=== PATIENT | male | born 1955 | race Caucasian/White ===

== ENCOUNTER 2018-02-10 20:50 | Inpatient (IN) ==
--- NOTE | 2018-02-10 21:05 | Emergency Department Note ---
Disposition Clinical Impression: Appendicitis Qualifiers: Appendicitis type: acute appendicitis Acute appendicitis type: unspecified acute appendicitis type Qualified Code(s): K35.80 - Unspecified acute appendicitis Disposition: Admitted As Inpatient Condition: Fair Forms: Work/School Release, ED Satisfaction Letter General Adult HPI - General Chief complaint: ED Abdominal Pain Stated complaint: abdominal pain Time Seen by Provider: 02/10/18 21:00 Source: patient, family, EMS Mode of arrival: EMS Limitations: no limitations Nursing Notes Reviewed: Yes Vital Signs Reviewed: Yes - History of Present Illness HPI Narrative: Symptoms started on Wednesday and then progressive in nature. Patient works the [employer]. Patient was seen at the [facility] for evaluation of right lower quadrant abdominal pain. Blood work and CT scan as reported below. Consistent with appendicitis. Patient has developed fever of 101. Received rectal Tylenol at the ID. Patient has associated right lower quadrant tenderness. 5 out of 10. worse with movement and palpation. better with laying still. No radiation. Associated decreased appetite. Constipation. Nothing by mouth since 10 AM Medications Amlodipine, fish oil, garlic oil, mag citrate, meclizine, pantoprazole, tamsulosin Past medical history Diabetes, vertigo, acid reflux, sleep apnea, carpal tunnel, hypertension, personality disorder Laboratory investigation White blood cell count 21. Hemoglobin 14. Platelets 371. Neutrophils 79.6. Absolute neutrophil count 16.7. Sodium 138. Potassium 3.7. Chloride 101. CO2 29. Glucose 157. B1 14. Creatinine 1.10. GFR greater than 60 Imaging Abdomen 2 view shows mildly prominent bowel loops with air fluid levels without definitive obstruction Small round densities in the left hemipelvis most consistent with phleboliths. Mild patchy low-attenuation relation involving the inferior pubic rami suggestive of lytic lesions versus heterogeneous osteopenia CT abdomen and pelvis: Impression as follows: Acute appendicitis secondary to obstructing appendicolith. Given surrounding free fluid, microperforation is difficult to exclude. No evidence of abscess formation. - Related Data Allergies Allergy/AdvReac Type Severity Reaction Status Date / Time omeprazole Allergy Nausea Verified 02/10/18 21:05 Review of Systems: CONSTITUTIONAL: Fever HEENT: Eyes: No visual changes. Ears, Nose, Throat: No hearing loss, difficulty talking or unable to swallow. SKIN: No rash or itching. CARDIOVASCULAR: No chest pain, chest pressure or chest discomfort. No palpitations or edema. RESPIRATORY: No shortness of breath, cough or sputum. GASTROINTESTINAL: Abdominal pain and constipation with food aversion. GENITOURINARY: No burning on urination or hematuria. NEUROLOGICAL: No headache, dizziness, syncope, paralysis, ataxia, numbness or tingling in the extremities. No change in bowel or bladder control. MUSCULOSKELETAL: No muscle pain, back pain, joint pain or stiffness. Physical Exam General appearance: NAD, conversant Eyes: anicteric sclerae, moist conjunctivae; PERRL HENT: Atraumatic; oropharynx clear with moist mucous membranes and no mucosal ulcerations Neck: Normal inspection; Trachea midline; FROM, supple Lungs: CTA, with normal respiratory effort and no intercostal retractions CV: RRR, no MRGs Abdomen: Significant tenderness the right lower quadrant with mild rebound and guarding. Extremities: No peripheral edema or extremity lymphadenopathy Skin: Normal temperature; no rash, ulcers or lesions Psych: Flat affect Neuro: alert and oriented to person, place and time Course - Consultations Consultation #1: Discussed Dr. Hill. Patient has appendicitis with appendicolith. No evidence of abscess or perforation. Patient is placed on antibiotics and admitted to his service. Requests Horacio.
[2018-02-10] MEDS ORDERED: Piperacillin/Tazobactam 3.375 GM in 0.9 % Sodium Chloride Mini Bag 100 ML IVPB ONE (21:20)
[2018-02-10] MEDS ORDERED: Ondansetron 4 MG/2 ML VIAL IVP PRN ×2 (21:21→22:11)
[2018-02-10] MEDS ORDERED: *HR* Morphine 2 MG/ML SYRINGE IVP PRN (21:21)
--- NOTE | 2018-02-10 21:28 | Emergency Department Note ---
Disposition Clinical Impression: Appendicitis Qualifiers: Appendicitis type: acute appendicitis Acute appendicitis type: unspecified acute appendicitis type Qualified Code(s): K35.80 - Unspecified acute appendicitis Disposition: Admitted As Inpatient Condition: Fair Forms: ED Satisfaction Letter, Work/School Release General Adult HPI - General Chief complaint: ED Abdominal Pain Stated complaint: abdominal pain Time Seen by Provider: 02/10/18 21:00 Source: patient, family, EMS Mode of arrival: EMS Limitations: no limitations Nursing Notes Reviewed: Yes Vital Signs Reviewed: Yes - History of Present Illness Pain Scale: 4 - Related Data Home Medications Medication Instructions Recorded Confirmed Pantoprazole Sodium [Protonix] 40 mg PO DAILY 02/10/18 02/10/18 Tamsulosin [Flomax] 0.4 mg PO DAILY 02/10/18 02/10/18 amLODIPine [Norvasc] 5 mg PO DAILY 02/10/18 02/10/18 Allergies Allergy/AdvReac Type Severity Reaction Status Date / Time omeprazole Allergy Nausea Verified 02/10/18 21:05 Past Medical History - Past Medical History Medical history: Reports: other Psychiatric history: Reports: no psych history - Social History Smoking Status: Never smoker Smokeless Tobacco Status: No Alcohol use: Reports: none Physical Exam - General Limitations: no limitations General appearance: alert Course Vital Signs Temperature 100.8 F H 02/10/18 20:53 Pulse Rate 92 02/10/18 20:53 Respiratory Rate 19 02/10/18 20:53 Blood Pressure 139/81 02/10/18 20:53 O2 Sat by Pulse Oximetry 95 02/10/18 20:53 Temperature 100.8 F H 02/10/18 20:53 Pulse Rate 92 02/10/18 20:53 Respiratory Rate 19 02/10/18 20:53 Blood Pressure 139/81 02/10/18 20:53 O2 Sat by Pulse Oximetry 95 02/10/18 20:53 Oxygen Delivery Oxygen Delivery Room Air Attestation Statement - Attestation Attestation: I, Peter Fortune MD, personally evaluated this patient and discussed their management with the resident physician. I reviewed the resident's note and agree with the documented findings, medical decision making, and plan of care. 62-year-old male transferred here from the local [facility] urgent care for acute appendicitis. Patient presented there with a 2 day history of no bowel movement and right sided abdominal pain. Workup at the [facility] revealed a WBC of 21, 000. CT of the abdomen and pelvis consistent with acute appendicitis. On examination patient is a well-developed well-nourished male in no acute distress. He is alert and oriented 3. There is no cyanosis or diaphoresis. Breath sounds are clear and equal bilaterally. Heart regular rate and rhythm. Abdomen is soft with present bowel sounds. There is marked right lower quadrant tenderness with guarding. Labs, x-ray, and CT results from the [facility] were reviewed. Dr. Yu discussed the case with the surgeon search consultant, Dr. Hill, and he accepted admission of the patient to his service.
[2018-02-10 21:30] LABS: INR 1.2; Prothrombin Time 13.1 Seconds (9.4-12.1)
[2018-02-10] MEDS ORDERED: 0.9 % Sodium Chloride 1,000 ML IVC SCH (21:30)
[2018-02-10] MEDS ORDERED: D5% in Water 1,000 ML IVC PRN (22:11)
[2018-02-10] MEDS ORDERED: *HR* Dextrose 50 % in Water (Syg) 50 ML SYRINGE IVP PRN (22:11)
[2018-02-10] MEDS ORDERED: Dextrose Gel 15 GM/37.5 ML TUBE PO PRN ×2 (22:11)
[2018-02-10] MEDS ORDERED: MORPHINE SUL Oral CONC 10 MG/0.5 ML ORAL.SYG SL PRN (22:11)
[2018-02-11] MEDS: Insulin LISPRO 300 UNITS/3 ML VIAL SQ SCH ×4 (00:37→19:17)
[2018-02-11] MEDS: Piperacillin/Tazobactam 3.375 GM in 0.9 % Sodium Chloride Mini Bag 100 ML IVPB SCH ×3 (05:36→21:14)
[2018-02-11] MEDS: 0.9 % Sodium Chloride 1,000 ML IVC SCH ×4 (05:36→21:12)
[2018-02-11 05:53] LABS: Basophils # 0.1 K/mcL (0.0-0.2); Basophils % 0.4 %; Eosinophils # 0.2 K/mcL (0.0-0.6); Hemoglobin 12.4 g/dL (12.9-16.9); Immature Granulocytes % 0.6 % (0-4); Lymphocytes % 11.5 %; Mean Corpuscular HGB Conc 33.5 g/dL (31.6-35.5); Mean Corpuscular Hemoglobin 30.7 pg (28.0-33.3); Mean Corpuscular Volume 91.6 fL (83.0-100.0); Mean Platelet Volume 9.8 fL (9.4-12.4); Monocytes # 1.6 K/mcL (0.0-1.3); Monocytes % 8.8 %; Neutrophils # 13.8 K/mcL (1.6-8.9); Platelet Count 317 K/mcL (140-400); Red Blood Count 4.04 M/mcL (4.19-5.50); Red Cell Distribution Width 12.5 % (11.5-14.5); Segmented Neutrophils % 77.7 %
--- NOTE | 2018-02-11 07:40 | General Surg History&Physical ---
Date of Encounter: 02/11/18 Time of Encounter: 07:38 Assessment and Plan (1) Acute appendicitis Current Visit: Yes Status: Acute The assessment and plan as outlined above was discussed with the patient and/or family members who expressed understanding and agreement. All questions were answered. I explained to the patient that I personally reviewed the images and report and I think it will be appropriate to proceed with a laparoscopic appendectomy. Risks and benefits have been discussed with the patient and we will proceed with this is afternoon. We will continue with IV antibiotics at this time. Qualifiers: Acute appendicitis type: with localized peritonitis Qualified Code(s): K35.3 - Acute appendicitis with localized peritonitis History of Present Illness Chief complaint: Right sided abdominal pain HPI: Mr. Lynn is a 62 year old male with with a past medical history significant for hypertension states that about one week ago he started to have right-sided abdominal pain. He points to the right flank area and states that he was also having some bloating sensation of discomfort. He was having problems with no bowel movements as well. The pain progressively worsened and because of continued discomfort he presented to the [facility] for further evaluation. He denies any nausea or vomiting but does admit to intermittent symptoms of diarrhea and constipation with a bowel movement on average twice per day without rectal bleeding. He had a CT scan performed the [facility] which showed evidence of acute appendicitis and he was subsequently transferred to [place] for further evaluation. He states today that his pain is somewhat better. Past Med Surg Social Fam HX - Past Medical History Medical history: diabetes, GERD, hypertension, other Psychiatric history: no psych history - Past Surgical History Surgical History: other (left neck I&D, INSPIRE placement) - Social History Smoking Status: Never smoker Smokeless Tobacco Status: No Alcohol use: none Drug use: none - Family History Brother Living Status: Still Living Hx Family Cardiac Disorders: Yes (mi and stroke) Hx Family Endocrine Disorder: Yes Medications and Allergies Pantoprazole Sodium [Protonix] 40 mg PO DAILY 02/10/18 [History] Tamsulosin [Flomax] 0.4 mg PO DAILY 02/10/18 [History] amLODIPine [Norvasc] 5 mg PO DAILY 02/10/18 [History] 3 Allergy/AdvReac Type Severity Reaction Status Date / Time omeprazole Allergy Nausea Verified 02/10/18 21:26 Review of Systems All systems PM: reviewed and no additional remarkable complaints except as stated All systems PM: The remainder of the systems were reviewed and are negative General Surgery Exam Initial Vital Signs Temp Pulse Resp BP Pulse Ox 100.8 F H 92 19 139/81 95 02/10/18 20:53 02/10/18 20:53 02/10/18 20:53 02/10/18 20:53 02/10/18 20:53 - General physical appearance well nourished, no distress - Respiratory normal expansion, normal respiratory effort - Cardiovascular Cardiovascular exam: Present: RRR, no murmurs/rubs/gallops - Abdomen Abdomen general surgery: Present: bowel sounds present, soft, tender (Noted right sided pain on palpation.) - Neurologic Present: CN 2-12 grossly intact - Musculoskeletal Present: other (No clubbing, cyanosis, or edema) Results - Labs 02/11/18 05:28 Abnormal lab results WBC 17.8 K/mcL (4.3-11.1) H 02/11/18 05:28 RBC 4.04 M/mcL (4.19-5.50) L 02/11/18 05:28 Hgb 12.4 g/dL (12.9-16.9) L 02/11/18 05:28 Hct 37.0 % (37.5-50.1) L 02/11/18 05:28 Neutrophils # 13.8 K/mcL (1.6-8.9) H 02/11/18 05:28 Monocytes # 1.6 K/mcL (0.0-1.3) H 02/11/18 05:28 PT 13.1 Seconds (9.4-12.1) H 02/10/18 21:16 All other labs normal. - Imaging CT scan - abdomen: report reviewed, image reviewed (I personally reviewed the CT scan images and report. There is evidence of inflammation of the appendix and surrounding mesentery consistent with acute appendicitis)
[2018-02-11] MEDS ORDERED: *HR* Heparin 5,000 UNIT/ML VIAL SQ SCH (09:00)
[2018-02-11] MEDS ORDERED: Ketorolac 15 MG/ML VIAL IVP ONE (13:04)
[2018-02-11] MEDS ORDERED: Pantoprazole 40 MG VIAL IVP SCH (13:15)
[2018-02-11] MEDS ORDERED: Lidocaine -MPF 4% 5 ML AMPUL ONE (15:01)
[2018-02-11] MEDS ORDERED: Lidocaine -MPF 2% 2 ML VIAL ONE (15:02)
[2018-02-11] MEDS ORDERED: Ondansetron 4 MG/2 ML VIAL ONE (15:02)
[2018-02-11] MEDS ORDERED: Dexamethasone 4 MG/ML VIAL ONE (15:02)
[2018-02-11] MEDS ORDERED: *HR* Rocuronium Bromide 50 MG/5 ML VIAL ONE (15:03)
[2018-02-11] MEDS ORDERED: *HR* Midazolam HCl 2 MG/2 ML VIAL ONE ×2 (15:03→15:05)
[2018-02-11] MEDS ORDERED: Famotidine 20 MG/2 ML VIAL IVP ONE ×2 (15:03→17:43)
[2018-02-11] MEDS ORDERED: Acetaminophen IV 1,000 MG/100 ML INFUS..BTL IVPB ONE (15:03)
[2018-02-11] MEDS ORDERED: *HR* Propofol 200 MG/20 ML VIAL IVP ONE (15:04)
[2018-02-11] MEDS ORDERED: *HR* FentaNYL (PF) 100 MCG/2 ML VIAL ONE ×2 (15:04→16:23)
[2018-02-11] MEDS ORDERED: Acetaminophen IV 1,000 MG/100 ML INFUS..BTL ONE (15:32)
[2018-02-11] MEDS ORDERED: Famotidine 20 MG/2 ML VIAL ONE (15:32)
--- NOTE | 2018-02-11 15:38 | Anesthesia Evaluation PreOp ---
Date of Encounter: 02/11/18 Time of Encounter: 15:35 - Past History Planned Operation: Lap Appendectomy Cardiac History: HTN, Hyperlipidemia Pulmonary History: Denies Any Significant HX RN CARDIAC CATH History: Denies Any Significant HX Other Medical History: Diabetes Type II, GERD Anesthesia History: No Prior Anesthetic Complications Alcohol Use: none Drug use: none Medications and Allergies Pantoprazole Sodium [Protonix] 40 mg PO DAILY 02/10/18 [History] Tamsulosin [Flomax] 0.4 mg PO DAILY 02/10/18 [History] amLODIPine [Norvasc] 5 mg PO DAILY 02/10/18 [History] 3 Allergy/AdvReac Type Severity Reaction Status Date / Time omeprazole Allergy Nausea Verified 02/10/18 21:26 - Meds/Allergy Pre-op Review Medications Reviewed: Yes Allergies Reviewed: Yes Beta Blockers on Current Med List: No Anesthesia Results - Labs 02/11/18 05:28 Laboratory Tests 02/11/18 02/11/18 05:28 05:31 Hgb 12.4 L Hct 37.0 L Plt Count 317 POC Glucose 141 H Anesthesia Exam O2 Sat Height 1.78 m Height 1.78 m Weight 83.915 kg Weight 83.915 kg O2 Sat by Pulse Oximetry 93 O2 Sat by Pulse Oximetry 93 O2 Sat by Pulse Oximetry 93 O2 Sat by Pulse Oximetry 94 O2 Sat by Pulse Oximetry 95 O2 Sat by Pulse Oximetry 95 Vital Signs Temp Pulse Resp BP Pulse Ox 100.8 F H 92 19 139/81 95 02/10/18 20:53 02/10/18 20:53 02/10/18 20:53 02/10/18 20:53 02/10/18 20:53 Height: 5'10 Weight: 185 lbs NPO (# of Hours): MN Pain Scale: 0 - HEENT Pupil (Motor): Pupils equal, EOMI Mallampati: III Teeth: Normal Oral Opening: Less than or equal to 3 - RN CARDIAC CATH LOC: Oriented RN CARDIAC CATH Motor: Normal RUE, Normal LUE, Normal RLE, Normal LLE, Normal Face RN CARDIAC CATH Sensory: Normal: RUE, LUE, RLE, LLE, Face - Cardiac Rhythm: Regular Murmur: None JVD: No Carotid Bruit: No - Pulmonary Breath Sounds: bilateral Clear Respiratory Effort: Symmetrical Anesthesia Assess/Plan ASA Score: 3 (HTN DM Gerd) Modified Chappell Scale for Level of Consciousness: Cooperative, oriented, and tranquil Anesthetic Plan: General, Regional Monitoring Plan: Standard Monitors Recovery Plan: PACU (Discussed GA and possible TAP Block, agrees to proceed)
[2018-02-11] MEDS ORDERED: *HR* PHENYLEPHRINE 1,000 MCG/10 ML SYRINGE IVP ONE (16:08)
[2018-02-11] MEDS ORDERED: *HR* Promethazine 25 MG/ML VIAL IVP PRN (16:20)
[2018-02-11] MEDS ORDERED: *HR* OxyCODONE Immed Rel 5 MG TABLET PO PRN (16:20)
[2018-02-11] MEDS ORDERED: MORPHINE SUL Oral CONC 10 MG/0.5 ML ORAL.SYG SL PRN ×2 (16:20→17:43)
[2018-02-11] MEDS ORDERED: Ketorolac 30 MG/ML VIAL ONE (16:25)
[2018-02-11] MEDS ORDERED: Neostigmine Methylsulfate 3 MG/3 ML SYRINGE ONE (16:29)
--- NOTE | 2018-02-11 16:47 | Operative Note ---
Date of procedure: 02/11/18 Pre-op diagnosis: Acute appendicitis Post-op diagnosis: same Procedure: Laparoscopic appendectomy Anesthesia: GILMARA Surgeon: Feliciano Hill Was there an assistant professor of anthropology present: No Software Publisher Other: HARSH Clayton Estimated blood loss (cc): 6 Specimen: appendix Condition: stable Disposition: PACU Procedure in Detail: Date of surgery: 02/11/18 After properly identifying the patient, the patient was brought to the operating room and placed in the supine position. After proper IV sedation was achieved followed by general endotracheal intubation, the patient's abdomen was prepped and draped in a normal sterile fashion. A timeout was performed noting the patient's name and type of procedure to be performed. An 11 blade scalpel was used to make a subumbilical incision down to level of the rectus fascia. Once the rectus fascia was incised and the abdomen was entered a 12 mm port was placed to the incision and the abdomen was insufflated with carbon dioxide. A laparoscopic camera was placed through the port which showed no injury to the intra-abdominal organs upon entry. A suprapubic 5 mm port and a left lower quadrant 5 mm port were then placed under direct camera visualization. The patient was placed in the left side down position and the right lower quadrant was examined. The appendix appeared to be densely adherent to the lateral sidewall. The base of the appendix was dissected away from the mesentery with the [place] dissector and the base of the appendix was transected with a BRITTANY stapler. The mesentery was dissected from the lateral sidewall with Bovie cauterization. There is no evidence of normal architecture due to the near chronicity of this inflammation. There was no abscess identified either. The distal appendix mesentery with dissected off the sidewall with Bovie cauterization and the appendix and portions of the mesentery were removed from the abdomen via an Endobag. The right lower quadrant and pelvis were then copiously irrigated with normal saline solution and reinspection demonstrated maintenance of hemostasis. All ports are then removed from the abdomen after the abdomen was desufflated. The rectus fascia for the subumbilical incision was reapproximated with a 0 Vicryl suture. The subcutaneous tissue was reapproximated with a 3-0 Vicryl suture and the epidermal and dermal layers for the remaining incisions were closed with 4-0 Monocryl sutures. Needle, sponge, and instrument counts were correct 2 and the incisions were covered with Steri-Strips and Band-Aids. The patient was aroused from IV sedation, extubated in the operating room without complication, and transported to the recovery room stable condition.
[2018-02-11] MEDS ORDERED: Dextrose Gel 15 GM/37.5 ML TUBE PO PRN ×2 (17:43)
[2018-02-11] MEDS ORDERED: Ondansetron 4 MG/2 ML VIAL IVP PRN (17:43)
[2018-02-11] MEDS ORDERED: *HR* Dextrose 50 % in Water (Syg) 50 ML SYRINGE IVP PRN (17:43)
[2018-02-11] MEDS ORDERED: Acetaminophen 325 MG TABLET PO PRN (17:43)
[2018-02-11] MEDS: Ketorolac 15 MG/ML VIAL IVP SCH (18:21)
--- NOTE | 2018-02-11 19:06 | Anesthesia Evaluation Post Op ---
Date of Encounter: 02/11/18 Time of Encounter: 17:30 - Vital Signs Vital Signs: Vital Signs/O2 Sat/Glucose, Most Current Temp Pulse Resp BP Pulse Ox 02/11/18 17:28 98.4 F 90 14 131/74 93 02/11/18 17:20 84 14 119/79 94 02/11/18 17:10 91 16 153/75 96 02/11/18 17:00 99.0 F 88 18 145/79 96 02/11/18 15:11 100.0 F H 82 16 144/80 93 - Lungs Lungs: Clear Ascult./Percussion - Airway Airway: Non-obstructed - Cardiovascular Regular Rate - Mental Status Mental Status: Alert & Oriented, Answers Appropriately - Pain Pain Scale: 0 Pain Scale used: Numeric (1 - 10) - Nausea Vomiting Nausea Vomiting: Not Present - Hydration Hydration: Ice chips - Discharge PostOp Status: Transfer Patient to floor Anes Supervising Prov Stmt: Pt seen/evaluated, VSS and pt has met criteria for discharge to floor. - MD Kalpana
[2018-02-11] MEDS: *HR* Heparin 5,000 UNIT/ML VIAL SQ SCH (21:14)
[2018-02-12] MEDS: Ketorolac 15 MG/ML VIAL IVP SCH ×2 (00:19→05:50)
[2018-02-12] MEDS: Insulin LISPRO 300 UNITS/3 ML VIAL SQ SCH ×2 (00:19→05:49)
[2018-02-12] MEDS: 0.9 % Sodium Chloride 1,000 ML IVC SCH ×2 (05:51→09:46)
[2018-02-12 06:51] LABS: BUN/Creatinine Ratio 18 (6-26); Blood Urea Nitrogen 14 mg/dL (8-23); Calcium 9.1 mg/dL (8.6-10.3); Carbon Dioxide 24 mEq/L (23-29); Chloride 105 mEq/L (98-107); Glucose 224 mg/dL (70-105); Osmolality,Calculated 293 (280-300); Potassium 3.9 mEq/L (3.5-5.1); Sodium 138 mEq/L (136-145); eGFR For African Americans > 60 (> 60); eGFR For Non-African Americans > 60 (> 60)
[2018-02-12 07:16] LABS: Basophils % 0.2 %; Hematocrit 42.5 % (37.5-50.1); Immature Granulocytes % 0.5 % (0-4); Lymphocytes # 1.1 K/mcL (0.6-4.6); Lymphocytes % 6.2 %; Mean Corpuscular HGB Conc 33.2 g/dL (31.6-35.5); Mean Corpuscular Hemoglobin 30.9 pg (28.0-33.3); Mean Corpuscular Volume 93.2 fL (83.0-100.0); Mean Platelet Volume 10.2 fL (9.4-12.4); Monocytes # 0.9 K/mcL (0.0-1.3); Monocytes % 4.6 %; Neutrophils # 16.4 K/mcL (1.6-8.9); Platelet Count 375 K/mcL (140-400); Red Blood Count 4.56 M/mcL (4.19-5.50); Red Cell Distribution Width 12.3 % (11.5-14.5); Segmented Neutrophils % 88.5 %
[2018-02-12 07:27] VITALS: BP 142/78
[2018-02-12 07:28] LABS: Hemoglobin 14.1 g/dL (12.9-16.9)
[2018-02-12] MEDS ORDERED: Pantoprazole 40 MG VIAL IVP SCH (09:00)
[2018-02-12] MEDS: Piperacillin/Tazobactam 3.375 GM in 0.9 % Sodium Chloride Mini Bag 100 ML IVPB SCH (09:42)
[2018-02-12] MEDS: *HR* Heparin 5,000 UNIT/ML VIAL SQ SCH (09:42)
--- NOTE | 2018-02-12 10:33 | Discharge Summary ---
Orders not resulted at time of discharge: Pending orders 02/11/18 16:37 Surgical Pathology [PTH] Routine Date of Encounter: 02/12/18 Time of Encounter: 10:00 - Discharge Diagnosis (1) S/P laparoscopic appendectomy Priority: Primary Status: Acute Comments: POD#1; discharged with PRN analgesia, colace, and antiemetic. (2) Acute appendicitis Priority: Primary Status: Acute Comments: Uncomplicated and successfully excised laparoscopically. Qualifiers: Acute appendicitis type: with localized peritonitis Qualified Code(s): K35.3 - Acute appendicitis with localized peritonitis General Surgery Exam Initial Vital Signs Temp Pulse Resp BP Pulse Ox 100.8 F H 92 19 139/81 95 02/10/18 20:53 02/10/18 20:53 02/10/18 20:53 02/10/18 20:53 02/10/18 20:53 VITAL SIGNS: Reviewed. See [facility] GENERAL: alert, answers questions appropriate HEENT: [Normocephalic, PER, oropharynx pink/moist CV: RRR RESPIRATORY: CTAB ABD: positive bowel sounds, soft, expected tenderness, no rebound/guarding/ rigidity, no peritoneal signs INCISION: clean, dry, intact without purulence/bleeding/edema/rubor/calor EXTREMITY: grossly normal motor function, no pedal edema NEUROLOGIC EXAM: AOx3, obeys commands, no speech deficits. PSYCHIATRIC: anxious affect; states is nervous about possible bowel obstruction (educated re: post-op ileus) SKIN: no gross lesions, rashes, or skin changes - Hospital Course Hospital course: Mr. Lynn is a 62 year old male ast medical history of diabetes hypertension transferred from [place] for acute appendicitis. Pain is been going on about 1 week prior to that. Patient also described bloating sensation and fever. educed bowel movement frequency as well in the past couple of days prior to admission. [facility] Labs/Imaging Laboratory investigation White blood cell count 21. Hemoglobin 14. Platelets 371. Neutrophils 79.6. Absolute neutrophil count 16.7. Sodium 138. Potassium 3.7. Chloride 101. CO2 29. Glucose 157. B1 14. Creatinine 1.10. GFR greater than 60 Abdomen 2 view: mildly prominent bowel loops with air fluid levels without definitive obstruction Small round densities in the left hemipelvis most consistent with phleboliths. Mild patchy low-attenuation relation involving the inferior pubic rami suggestive of lytic lesions versus heterogeneous osteopenia CT abdomen and pelvis: Impression as follows: Acute appendicitis secondary to obstructing appendicolith. Given surrounding free fluid, microperforation is difficult to exclude. No evidence of abscess formation. Patient had mildly elevated temperature on arrival to [facility], but other vital signs have been normal and stable throughout. Labs throughout current hospitalization significant for leukocytosis predominantly neutrophils; otherwise unremarkable. uncomplicated laparoscopic appendectomy performed by Dr. Hill on 2017. Laparoscopic exploration revealed no other sources of bowel obstruction including adhesions or volvuli. Pt tolerating clears and regular ADA diet. Discharged in good condition with educational materials and return precautions. All questions answered. - Time Spent with Patient Total time spent providing and/or coordinating discharge services: - Discharge Medications Prescriptions: Ondansetron ODT [Zofran ODT] 4 mg SL Q6HR #15 tab.rapdis Docusate [Colace] 100 mg PO BID #30 capsule HYDROcodone/Acet 5/325 mg [[place] 5-325 mg] 1 tab PO Q6H PRN 7 Days #28 tab PRN Reason: Severe Pain Ibuprofen 800 mg PO Q8H PRN #42 tablet PRN Reason: Mild Pain Home Medications: Pantoprazole Sodium [Protonix] 40 mg PO DAILY 02/10/18 [History] Tamsulosin [Flomax] 0.4 mg PO DAILY 02/10/18 [History] amLODIPine [Norvasc] 5 mg PO DAILY 02/10/18 [History] Docusate [Colace] 100 mg PO BID #30 capsule 02/12/18 [Rx] HYDROcodone/Acet 5/325 mg [[place] 5-325 mg] 1 tab PO Q6H PRN 7 Days #28 tab 02/12 [Rx] Ibuprofen 800 mg PO Q8H PRN #42 tablet 02/12/18 [Rx] Ondansetron ODT [Zofran ODT] 4 mg SL Q6HR #15 tab.rapdis 02/12/18 [Rx] Allergies/Adverse Reactions: 3 Allergy/AdvReac Type Severity Reaction Status Date / Time omeprazole Allergy Nausea Verified 02/10/18 21:26 Date of admission: 02/11/18 11:47 Primary care physician: [facility] Discharging clinician: Daryn Mendoza Anticipated date of discharge: 02/12/18 Labs on day of discharge: Labs from last 24 hours 02/12/18 02/12/18 02/12/18 06:04 06:04 05:01 WBC 18.5 H RBC 4.56 Hgb 14.1 D Hct 42.5 MCV 93.2 MCH 30.9 MCHC 33.2 RDW 12.3 Plt Count 375 MPV 10.2 Immature Gran % 0.5 Seg Neutrophils % 88.5 Lymphocytes % 6.2 Monocytes % 4.6 Eosinophils % 0.0 Basophils % 0.2 Neutrophils # 16.4 H Lymphocytes # 1.1 Monocytes # 0.9 Eosinophils # 0.0 Basophils # 0.0 Sodium 138 Potassium 3.9 Chloride 105 Carbon Dioxide 24 BUN 14 Creatinine 0.79 Est GFR ( Amer) > 60 Est GFR (Non-Af Amer) > 60 BUN/Creatinine Ratio 18 Glucose 224 H POC Glucose 200 H Calculated Osmolality 293 Calcium 9.1 02/11/18 02/11/18 23:10 19:05 WBC RBC Hgb Hct MCV MCH MCHC RDW Plt Count MPV Immature Gran % Seg Neutrophils % Lymphocytes % Monocytes % Eosinophils % Basophils % Neutrophils # Lymphocytes # Monocytes # Eosinophils # Basophils # Sodium Potassium Chloride Carbon Dioxide BUN Creatinine Est GFR ( Amer) Est GFR (Non-Af Amer) BUN/Creatinine Ratio Glucose POC Glucose 183 H 138 H Calculated Osmolality Calcium - Patient Status Disposition: Home, Self-Care Condition: Good Functional capacity at discharge: independent ambulation Overall status at discharge: patient is progressing back to baseline - Discharge Instructions Instructions: Appendicitis (DC), Laparoscopic Appendectomy (DC), Ileus (GEN) [facility] [Primary Care Provider[facility] - Additional Instructions: Please review all discharge educational handouts. Follow-up with Dr. Hill in his clinic in 2 weeks. You are prescribed medication for pain, nausea, and constipation to be used if/ as needed; take as written. Avoid driving if your pain requires that you take opioid analgesics such as oxycodone. Call Dr. Hill's office if you have fever/chills/sweats/body aches, nausea, vomiting, constipation not relieved with meds you have been prescribed, significant abdominal pain after eating, blood in your stools or blackened stools, or signs of infection at your incision sites (includes increasing redness, increasing warmth, swelling, or pus). Advance activities as tolerated. Deep breathing is encouraged. Wound Care: shower with antibacterial soap; gently wash or allow water to passively run over surgical sites. May leave incisions open to air or cover with a dry dressing for comfort. Tape to secure. Reinforce or change outer dressing as needed. Call your PCP for other concerns if any arise. - Diet and Activity Activity: increase activity as tolerated Diet: diabetic diet
== END 2018-02-12 13:10 | disposition home or self-care (01) | DRG 340 ==
LOC: EMEROO 20:50 → 3ANU 20:50
PROVIDERS: ADMIT Surgery; ATTEND Surgery